=== PATIENT | female | born 1990 | race Caucasian/White ===

== ENCOUNTER 2017-11-03 23:13 | Emergency (ER) | payer OTHER ==
[~2017-11-03] VITALS: Ht 162.6 cm; Wt 98.2 kg
[2017-11-04] VITALS: Ht 162.6 cm; Wt 98.2 kg
[2017-11-04 00:36] LABS: BASOPHIL % 1.1 % (0-2); PLATELET COUNT 337 x10^3mcL (130-400)
[2017-11-04 00:52] LABS: CALCIUM 8.5 mg/dL (8.5-10.1); CARBON DIOXIDE 30.4 mmol/L (21-32); CHLORIDE SERUM 107 mmol/L (98-107); CREATININE SERUM 0.6 mg/dL (0.6-1.0); GFR1 > 60 mL/min; GLUCOSE SERUM 82 mg/dL (74-106); POTASSIUM SERUM 3.6 mmol/L (3.5-5.1); SODIUM SERUM 143 mmol/L (136-145)
[2017-11-04 00:57] LABS: ALBUMIN 3.4 g/dL (3.4-5.0); ALKALINE PHOSPHATASE 63 U/L (46-116); ALT/SGPT 23 U/L (14-59); AST/SGOT 18 U/L (15-37); LIPASE 156 IU/L (73-393); TOTAL PROTEIN, SERUM 7.3 g/dL (6.4-8.2)
[2017-11-04 00:58] LABS: BILIRUBIN TOTAL 0.1 mg/dL (0.20-1.00)
[2017-11-04 01:46] VITALS: BP 129/78
== END 2017-11-04 01:46 | disposition home or self-care (01) ==
LOC: ED 23:13
PROVIDERS: Emergency Medicine
DX: R10.30 Lower abdominal pain, unspecified (principal); R10.31 Right lower quadrant pain; M54.5 Low back pain; R05 Cough; Z91.013 Allergy to seafood
CPT/HCPCS: 36415